=== PATIENT | male | born 1975 ===

== ENCOUNTER 2023-05-12 05:31 | Outpatient (CLI) | payer SELFPAY ==
[~2023-05-12] VITALS: Ht 175.5 cm; Wt 100.0 kg
[2023-05-17] MEDS ORDERED: GABA250S11 PO (08:54)
[2023-05-17] MEDS ORDERED: OMEP10SU2 PO (08:54)
[2023-05-17] MEDS ORDERED: CYCL5TAB PO (08:54)
[2023-05-17] MEDS ORDERED: LOSA25TA2 PO (08:54)
[2023-05-17] MEDS ORDERED: PRAZ5CAP2 PO (08:54)
[2023-05-17] MEDS ORDERED: PROP60CA36 PO (08:54)
== END 2023-05-17 09:21 | disposition home or self-care (01) ==
LOC: PREOP 05:31
PROVIDERS: ATTEND Podiatrist Foot & Ankle Surgery
DX: Z01.818 Encounter for other preprocedural examination (principal)